=== PATIENT | female | born 1955 | race Caucasian/White ===

== ENCOUNTER 2017-01-24 19:50 | Emergency (ER) | payer SELFPAY ==
--- NOTE | 2017-01-24 20:22 | RADIOLOGY REPORT (SQ) ---
EXAM DESCRIPTION: CT HEAD WITHOUT COMPLETED DATE/TIME: 01/24/2017 8:13 pm REASON FOR STUDY: syncopal fall with head injury COMPARISON: None. TECHNIQUE: Axial images acquired through the brain without intravenous contrast. Images reviewed wi th bone, brain and subdural windows. Images stored on PACS. All CT scanners at this facility use dose modulation, iterative reconstruction, and/or weight based d osing when appropriate to reduce radiation dose to as low as reasonably achievable (ALARA). [facility]: Dose Right [facility]: CareDose [facility]: Dose Right [facility]: Teradose 4D [facility]: [employer] RADIATION DOSE: 64.61 mGy. LIMITATIONS: None. FINDINGS: VENTRICLES: Normal size and contour. CEREBRUM: No masses. No hemorrhage. No midline shift. Normal daily/white matter differentiation. N o evidence for acute infarction. CEREBELLUM: No masses. No hemorrhage. No alteration of density. No evidence for acute infarction. EXTRAAXIAL SPACES: No fluid collections. No masses. ORBITS AND GLOBE: No intra- or extraconal masses. Normal contour of globe without masses. CALVARIUM: No fracture. PARANASAL SINUSES: No fluid or mucosal thickening. SOFT TISSUES: No mass or hematoma. OTHER: No other significant finding. IMPRESSION: NORMAL BRAIN CT WITHOUT CONTRAST. TECHNICAL DOCUMENTATION: JOB ID: [id number] Quality ID # [id number]: Final reports with documentation of one or more dose reduction techniques (e.g., Au tomated exposure control, adjustment of the mA and/or kV according to patient size, use of iterative reconstruction technique) 2010 [employer]- All Rights Reserved
--- NOTE | 2017-01-24 20:29 | ER Document Report ---
ED Medical Screen (RME) - General Chief Complaint: Syncope Stated Complaint: FINGER PAIN Time Seen by Provider: 01/24/17 20:24 Mode of Arrival: Wheelchair Information source: Patient, Relative - HPI Patient complains to provider of: syncope/fall Onset: Just prior to arrival - pt. bent over to greens picker a letter off the ground and had a syncopal episode - fell and hit head and injured R ring finger - Related Data Allergies/Adverse Reactions: codeine [Codeine] Adverse Reaction (Verified 01/24/17 19:54) Nausea Past Medical History Renal/ Medical History: Denies: Hx Peritoneal Dialysis Malignancy Medical History: Reports: Hx Skin Cancer Musculoskeltal Medical History: Reports Hx Arthritis, Reports Hx Fibromyalgia, Reports Hx Gout Past Surgical History: Reports: Hx Section Physical Exam - Vital signs Vitals: Temp Pulse BP Pulse Ox 98.1 F 99 132/89 H 97 01/24/17 19:56 01/24/17 19:56 01/24/17 19:56 01/24/17 19:56 Course - Vital Signs Vital signs: Temp Pulse Resp BP Pulse Ox 98.1 F 99 132/89 H 97 01/24/17 19:56 01/24/17 19:56 01/24/17 19:56 01/24/17 19:56
--- NOTE | 2017-01-24 21:06 | RADIOLOGY REPORT (SQ) ---
EXAM DESCRIPTION: FINGER RIGHT COMPLETED DATE/TIME: 01/24/2017 8:37 pm REASON FOR STUDY: visible deformity post fall right pinky COMPARISON: None. NUMBER OF VIEWS: Three views of the right hand and pinky finger. LIMITATIONS: Patient has rings on the ring finger which partially obscures the adjacent digits on so me views. FINDINGS: Osteopenia. There is gross extension deformity at the PIP joint of the pinky finger, abno rmally hyperextended/ subluxed. Along the palmar aspect of the proximal phalanx distally, small comm inution fragments are suggested. Other joints are intact allowing for IP osteoarthritis. OTHER: No other significant finding. IMPRESSION: Fracture dislocation PIP joint pinky finger. TECHNICAL DOCUMENTATION: JOB ID: [id number]
[2017-01-24 21:58] LABS: ABSOLUTE EOSINOPHILS # (AUTO) 0.1 10^3/uL (0.0-0.6); ABSOLUTE LYMPHOCYTES (AUTO) 1.1 10^3/uL (0.5-4.7); ABSOLUTE MONOCYTES (AUTO) 0.7 10^3/uL (0.1-1.4); ABSOLUTE NEUT (AUTO) 2.5 10^3/uL (1.7-8.2); BASOPHILS % (AUTO) 0.8 % (0-2); HEMATOCRIT 38.7 % (36.0-47.0); HEMOGLOBIN 12.8 g/dL (12.0-15.5); HGB HCT DIFFERENCE -0.3; MEAN CORPUSCULAR HEMOGLOBIN 31.8 pg (27.0-33.4); MEAN CORPUSCULAR VOLUME 96 fl (80-97); MONOCYTES % (AUTO) 16.5 % (3-13); RED BLOOD COUNT 4.02 10^6/uL (3.72-5.28); RED CELL DISTRIBUTION WIDTH 14.7 % (11.5-14.0); SEGMENTED NEUTROPHILS % (AUTO) 55.7 % (42-78); WHITE BLOOD COUNT 4.5 10^3/uL (4.0-10.5)
[2017-01-24 22:09] LABS: ALANINE AMINOTRANSFERASE 27 U/L (9-52); ALBUMIN 4.1 g/dL (3.5-5.0); ALKALINE PHOSPHATASE 86 U/L (38-126); ANION GAP 14 (5-19); ASPARTATE AMINO TRANSFERASE 26 U/L (14-36); BILIRUBIN,DIRECT 0.3 mg/dL (0.0-0.4); BILIRUBIN,TOTAL 0.5 mg/dL (0.2-1.3); BLOOD UREA NITROGEN 28 mg/dL (7-20); CARBON DIOXIDE 23 mmol/L (22-30); CHLORIDE 102 mmol/L (98-107); CREATINE KINASE 48 U/L (30-135); CREATININE RESULT 2.07 mg/dL (0.52-1.25); GLUCOSE 107 mg/dL (75-110); POTASSIUM 4.2 mmol/L (3.6-5.0); SODIUM 138.6 mmol/L (137-145); TOTAL PROTEIN 7.6 g/dL (6.3-8.2)
[2017-01-24 22:16] LABS: CALCIUM 12.3 mg/dL (8.4-10.2)
[2017-01-24 22:25] LABS: CREATINE KINASE MB 0.72 ng/mL (<4.55)
[2017-01-24 22:28] LABS: TROPONIN I < 0.012 ng/mL
--- NOTE | 2017-01-24 23:37 | EKG REPORT ---
SEVERITY:- ABNORMAL ECG - SINUS RHYTHM FIRST DEGREE AV BLOCK PROBABLE LEFT ATRIAL ABNORMALITY INCOMPLETE RIGHT BUNDLE BRANCH BLOCK LEFT VENTRICULAR HYPERTROPHY : Confirmed by: Ron Sanches 24-Jan-2017 23:37:30
--- NOTE | 2017-01-25 02:04 | ER Document Report ---
ED Dizziness/Weakness - General Mode of Arrival: Wheelchair Information source: Patient - HPI Patient complains to provider of: Dizziness Associated symptoms: Other - See above <OSMANI MORENO - Last Filed: 01/25/17 02:20> <PENNIE DIXON - Last Filed: 01/25/17 06:29> - General Chief Complaint: Dizziness Stated Complaint: Dizziness Time Seen by Provider: 01/24/17 20:24 Notes: Patient is a 61 year old female who presents to the emergency department complaining of a fall secondary to dizziness. Patient states she has been having dizzy episodes for the past 2 months and today she was picking something up off the ground outside and fell after becoming dizzy, when she tried to get back up she became dizzy again and fell back down injuring her right pinky finger. Patient has been following up with Dr. Murrieta for her dizziness. ( OSMANI MORENO) - Related Data Allergies/Adverse Reactions: codeine [Codeine] Adverse Reaction (Verified 01/24/17 19:54) Nausea Past Medical History - General Information source: Patient, Relative - Social History Smoking Status: Never Smoker Chew tobacco use (# tins/day): No Frequency of alcohol use: None Drug Abuse: None Family History: None, Reviewed & Not Pertinent - Past Medical History Cardiac Medical History: Reports: Hx Hypertension Renal/ Medical History: Reports: Other - Hx Kidney failure Malignancy Medical History: Reports: Hx Skin Cancer Musculoskeltal Medical History: Reports Hx Arthritis, Reports Hx Fibromyalgia, Reports Hx Gout Past Surgical History: Reports: Hx Section - Immunizations Hx Diphtheria, Pertussis, Tetanus Vaccination: Yes <OSMANI MORENO - Last Filed: 01/25/17 02:20> Review of Systems - Review of Systems Constitutional: No symptoms reported EENT: No symptoms reported Cardiovascular: See HPI, Dizziness Respiratory: No symptoms reported Gastrointestinal: No symptoms reported Genitourinary: No symptoms reported Female Genitourinary: No symptoms reported Musculoskeletal: See HPI, Deformity Skin: No symptoms reported Hematologic/Lymphatic: No symptoms reported Neurological/Psychological: No symptoms reported -: Yes All other systems reviewed and negative <OSMANI MORENO - Last Filed: 01/25/17 02:20> Physical Exam <OSMANI MORENO - Last Filed: 01/25/17 02:20> <PENNIE DIXON - Last Filed: 01/25/17 06:29> - Vital signs Vitals: Temp Pulse BP Pulse Ox 98.1 F 99 132/89 H 97 01/24/17 19:56 01/24/17 19:56 01/24/17 19:56 01/24/17 19:56 - Notes Notes: GENERAL: Alert, interacts well. No acute distress. HEAD: Ecchymosis to lateral aspect of right eyebrow, no abrasion, no stepoffs or deformities, tenderness to palpation of right brow ridge. EYES: Pupils equal, round, and reactive to light. Extraocular movements intact. ENT: Oral mucosa moist, tongue midline. NECK: Full range of motion. Supple. Trachea midline. LUNGS: Clear to auscultation bilaterally, no wheezes, rales, or rhonchi. No respiratory distress. HEART: Regular rate and rhythm. No murmurs, gallops, or rubs. ABDOMEN: Soft, non-tender. Non-distended. Bowel sounds present in all 4 quadrants. EXTREMITIES: No edema, radial and dorsalis pedis pulses 2/4 bilaterally. No cyanosis. Posterior deformity of PIP joint of 5th digit on right hand with abrasion on palmar side of PIP joint. NEUROLOGICAL: Alert and oriented x3. Normal speech. PSYCH: Normal affect, normal mood. SKIN: Warm, dry, normal turgor. (OSMANI MORENO) Course - Laboratory Result Diagrams: 01/24/17 21:30 01/24/17 21:30 <OSMANI MORENO - Last Filed: 01/25/17 02:20> - Laboratory Result Diagrams: 01/24/17 21:30 01/24/17 21:30 <PENNIE DIXON - Last Filed: 01/25/17 06:29> - Re-evaluation Re-evalutation: CBC shows slightly low platelets at 126, CMP shows chronic renal failure with a BUN of 28 and creatinine of 2.07, 2 is elevated at 12.3, cardiac enzymes negative, CT scan of the head is negative, finger x-ray shows a fracture dislocation of the PIP joint on the right fifth digit. It does appear to be an open fracture as there is a over the PIP joint. I did reduce this joint using a digital block, patient tolerated well, patient then resumed full range of motion of this digit was placed into a splint and started on Augmentin. Discharged home and asked to follow-up with orthopedics as an outpatient. EKG is nonischemic. Patient has been having the same intermittent dizziness for several months, states that it is nothing new, states that the only thing that brought her to the ER tonight was the pain in her finger and the malalignment. Patient describes it as a dizzy feeling with the world spinning around her particularly when she moves, I did suggest a trial of Antivert, she is willing to try this. 01/25/17 03:26 Interval reduction near anatomic alignment of a previously demonstrated right 5th PIP dislocation. Small nonspecific bony fragments measuring up to 0.4 cm at the volar aspect of the right 5th proximal phalangeal head. [id number] osteoarthritis. 01/25/17 04:04 (PENNIE DIXON) - Vital Signs Vital signs: Temp Pulse Resp BP Pulse Ox 97.6 F 72 14 136/74 H 97 01/25/17 04:40 01/25/17 04:40 01/25/17 04:40 01/25/17 04:40 01/25/17 04:40 - Laboratory Laboratory results interpreted by me: 01/24/17 01/24/17 21:30 21:30 RDW 14.7 H Plt Count 126 L Monocytes % 16.5 H BUN 28 H Creatinine 2.07 H Est GFR ( Amer) 30 L Est GFR (Non-Af Amer) 24 L Calcium 12.3 H* - EKG Interpretation by Me Additional EKG results interpreted by me: 01/25/17 04:05 EKG shows sinus rhythm at a rate of 90, first-degree AV block, left axis deviation, incomplete right bundle branch block, no ST segment elevations or depressions, there are T-wave inversions noted in lead III, V2, V3 and T-wave flattening in V4 per my interpretation. (PENNIE DIXON) Procedures - Immobilization Right Finger 5th digit Pre-Proc Neuro Vasc Exam: Normal Immobilizer type: Finger splint (Static) Performed by: PCT Post-Proc Neuro Vasc Exam: Normal Alignment checked and good: Yes - Joint Reduction/Fracture Care Right Finger 5th digit Consent obtained: Yes - verbal Conscious sedation: No Pre-procedure NV exam: Yes Fracture: Open Post-procedure NV exam: Yes - Motion restored. Post-reduction x-ray: Joint reduced Reduction attempts: 1 Complications: No <PENNIE DIXON - Last Filed: 01/25/17 06:29> Discharge <OSMANI MORENO - Last Filed: 01/25/17 02:20> <PENNIE DIXON - Last Filed: 01/25/17 06:29> - Discharge Clinical Impression: Open fracture dislocation of proximal interphalangeal joint, Dizziness Fall at home Qualifiers: Encounter type: initial encounter Qualified Code(s): W19.XXXA - Unspecified fall, initial encounter Condition: Stable Disposition: HOME, SELF-CARE Additional Instructions: Please take your antibiotics as directed until they are gone. Please wear the splint until you follow-up with orthopedics. You may wash and dry your hand apply antibiotic ointment and then put the splint back on. Please return for redness or swelling of your hand. Prescriptions: Amox Tr/Potassium Clavulanate [Augmentin 875-125 Tablet] 1 tab PO BID 10 Days Forms: Return to Work Referrals: GLADYS ESQUIVEL MD [ACTIVE STAFF] - Follow up as needed (within 1 week ) Scribe Attestation: 01/25/17 06:29 I personally performed the services described in the documentation, reviewed and edited the documentation which was dictated to the scribe in my presence, and it accurately records my words and actions. (PENNIE DIXON) Scribe Documentation - Scribe Written by Tyrell:: tyrell Bonilla, 01/25/17, 0213 acting as scribe for :: Moe <OSMANI MORENO - Last Filed: 01/25/17 02:20>
[2017-01-25] MEDS ORDERED: LIDOCAINE 1% INJ (10 MG/ML) 10 ML MDV INJ ONE (02:06)
[2017-01-25] MEDS ORDERED: LIDOCAINE 1% INJ-PF (10 MG/ML) 30 ML SDV ONE (02:10)
[2017-01-25] MEDS ORDERED: HYDROCODONE/ACETAMINOPHEN 5-325 MG 6 TAB/DSPK PO PRN (03:07)
[2017-01-25] MEDS ORDERED: AMOXICILLIN TR/POT CLAVULANATE 500-125 MG TAB PO ONE (03:07)
--- NOTE | 2017-01-25 03:12 | RADIOLOGY REPORT (SQ) ---
EXAM DESCRIPTION: FINGER RIGHT COMPLETED DATE/TIME: 01/25/2017 2:59 am REASON FOR STUDY: POST REDUCTION COMPARISON: None. NUMBER OF VIEWS: Three views. TECHNIQUE: AP, lateral, and oblique images acquired of the right fifth finger. LIMITATIONS: None. FINDINGS: Interval reduction near anatomic alignment of a previously demonstrated right 5th PIP disl ocation. Small nonspecific bony fragments measuring up to 0.4 cm at the volar aspect of the right 5t h proximal phalangeal head. [id number] osteoarthritis. IMPRESSION: As above. COMMENT: SITE OF TRAUMA/COMPLAINT MARKED/STAMP COMPLETED: YES. TECHNICAL DOCUMENTATION: JOB ID: [id number] [employer]- All Rights Reserved
[2017-01-25 04:42] VITALS: BP 136/74
== END 2017-01-25 04:40 | disposition home or self-care (01) ==
LOC: ER 19:50
PROC: 0PSTXZZ Reposition Right Finger Phalanx, External Approach (ICD-10-PCS; principal; 2017-01-24)
DX: S62.616B Displaced fracture of proximal phalanx of right little finger, initial encounter for open fracture (principal); S00.11XA Contusion of right eyelid and periocular area, initial encounter; W18.39XA Other fall on same level, initial encounter; Y93.89 Activity, other specified; Y92.008 Other place in unspecified non-institutional (private) residence as the place of occurrence of the external cause; R55 Syncope and collapse; I45.10 Unspecified right bundle-branch block; I12.9 Hypertensive chronic kidney disease with stage 1 through stage 4 chronic kidney disease, or unspecified chronic kidney disease; N18.9 Chronic kidney disease, unspecified; Z85.828 Personal history of other malignant neoplasm of skin
CPT/HCPCS: 36415; 70450; 80053; 82550; 82553; 84484; 85025; 93005; 93010; 99284